=== PATIENT | female | born 1960 | race Two or more races ===

== ENCOUNTER 2017-01-04 10:02 | Outpatient (CLI) | payer OTHER ==
--- NOTE | 2017-01-08 17:32 | Mammography Report ---
DIGITAL SCREENING MAMMOGRAM: 01/04/2017 CLINICAL INDICATION: A 56-year-old nulliparous patient for screening. COMPARISON: 11/2014, 09/2011, 09/2010, 08/2009, 08/2007. TECHNIQUE: Routine CC and MLO projections as well as bilateral laterally exaggerated craniocaudal vi ews were obtained of the breasts. FINDINGS: Parenchymal tissue within both breasts is heterogeneously dense, which may lower the sensi tivity of mammography; however, there are no dominant masses, suspicious microcalcifications, or seco ndary signs of malignancy. In comparison to the previous studies, there are no significant changes. ASSESSMENT: NO MAMMOGRAPHIC EVIDENCE OF MALIGNANCY. NO SIGNIFICANT INTERVAL CHANGES. RECOMMENDATION: Screening mammography is recommended annually. BIRADS category 1 - negative. STANDARD QUALIFYING STATEMENTS 1. This examination was reviewed with the aid of Computed-Aided Detection (CAD). 2. A negative or benign imaging report should not delay biopsy if clinically suspicious findings are present. Consider surgical consultation if warranted. More than 5% of cancers are not identified b y imaging. 3. Dense breasts may obscure an underlying neoplasm. JOB #: [id number] EXT JOB #:[id number]
== END 2017-01-04 10:03 | disposition home or self-care (01) ==
LOC: DI 10:02
PROVIDERS: ATTEND Internal Medicine
DX: Z12.31 Encounter for screening mammogram for malignant neoplasm of breast (principal)
CPT/HCPCS: 77067

== ENCOUNTER 2019-01-03 15:25 | Emergency (ER) | payer OTHER ==
--- NOTE | 2019-01-03 15:39 | ED Physician Documentation ---
History of Present Illness - Stated complaint Stated Complaint: POSS STROKE - Chief complaint Chief Complaint: Neuro - History obtained from History obtained from: Patient, Family - Additonal information Additional information: Patient is a 58-year-old female with history of thyroid disturbance presenting with her who has concern for possible confusion since approximately 45 minutes prior to arrival.Patient is reportedly amnestic to today and the last several days, however, upon further probing, she is able to answer questions appropriately.However, provides most of the history. He denies any recent illness or complaints including fever, chest pain, difficulty breathing, abdominal pain, vomiting, bowel or urine changes. does report eating sexton mushrooms obtained from the [employer] with the patient earlier this morning, but otherwise denies alcohol and drug use. Patient was laying tile in the bathroom this afternoon and exposed to concrete, but no other chemicals. Patient was at her normal this morning and first noticed confusion when he questioned her regarding the bathroom tiles just prior to arrival. He otherwise does not report facial droop, paresthesias, or paralysis, slurred speech. Patient also denies the symptoms. No other improving or worsening factors noted. No anticoagulation. Review of Systems Constitutional: denies: Fever Eyes: denies: Decreased vision Cardiac: denies: Chest pain / pressure Respiratory: denies: Dyspnea GI: denies: Abdominal Pain : denies: Dysuria Neurologic: reports: Confused, Altered mental status. denies: Generalized weakness, Focal weakness, Numbness, Difficulty speaking, Near syncope, Syncope, Headache PD PAST MEDICAL HISTORY - Past Medical History Cardiovascular: None Endocrine/Autoimmune: HyPOthyroidism GI: None : None HEENT: None Psych: None Musculoskeletal: None Derm: None - Past Surgical History Past Surgical History: No - Present Medications Home Medications: Ambulatory Orders Medication Instructions Recorded Confirmed Levothyroxine [Synthroid] 25 mcg PO QDAC 07/19/15 01/03/19 Nitrofurantoin Monohyd/M-Cryst 100 mg PO BID #10 capsule 01/03/19 [Macrobid 100 mg Capsule] - Allergies Allergies/Adverse Reactions: Allergies Allergy/AdvReac Type Severity Reaction Status Date / Time No Known Drug Allergies Allergy Verified 01/03/19 15:34 PD ED PE NORMAL - Vitals Vital signs reviewed: Yes - General General: Alert and oriented X 3, No acute distress, Well developed/nourished - HEENT HEENT: Atraumatic, PERRL, EOMI, Moist mucous membranes, Pharynx benign, Dentition benign, Other (Gross visual acuity intact) - Neck Neck: Supple, no meningeal sign - Cardiac Cardiac: RRR, No murmur - Respiratory Respiratory: No respiratory distress, Clear bilaterally - Abdomen Abdomen: Normal bowel sounds, Soft, Non tender, Non distended - Derm Derm: Normal color, Warm and dry, No rash - Extremities Extremities: No deformity, No tenderness to palpate - Neuro Neuro: Alert and oriented X 3, 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1 RDW 13.0 Plt Count 222 MPV 7.6 L Neut # (Auto) 4.4 Lymph # (Auto) 1.9 [place] # (Auto) 0.5 Eos # (Auto) 0.1 Baso # (Auto) 0.1 Absolute Nucleated RBC 0.00 Nucleated RBC % 0.1 PT 11.8 INR 1.0 APTT 29.1 Sodium 140 Potassium 3.4 L Chloride 100 L Carbon Dioxide 27 Anion Gap 13.0 BUN 17 Creatinine 0.7 Estimated GFR (MDRD) 86 L Glucose 87 POC Whole Bld Glucose Calcium 9.6 Total Bilirubin 0.7 AST 23 ALT 19 Alkaline Phosphatase 58 Troponin I Total Protein 8.1 Albumin 5.1 Globulin 3.0 Albumin/Globulin Ratio 1.7 Lipase 36 TSH Urine Color Urine Clarity Urine pH Ur Specific [place] Urine Protein Urine Glucose (UA) Urine Ketones Urine Occult Blood Urine Nitrite Urine Bilirubin Urine Urobilinogen Ur Leukocyte Esterase Urine RBC Urine WBC Ur Squamous Epith Cells Urine Bacteria Ur Microscopic Review Urine Culture Comments Salicylates < 6.0 Urine Opiates Screen Ur Oxycodone Screen Urine Methadone Screen Ur Propoxyphene Screen Acetaminophen < 10 L Ur Barbiturates Screen Ur Tricyclics Screen Ur Phencyclidine Scrn Ur Amphetamine Screen U Methamphetamines Scrn U Benzodiazepines Scrn Urine Cocaine Screen U Cannabinoids Screen Ethyl Alcohol < 5.0 01/03/19 01/03/19 01/03/19 15:35 15:35 15:36 WBC RBC Hgb Hct MCV MCH MCHC RDW Plt Count MPV Neut # (Auto) Lymph # (Auto) [place] # (Auto) Eos # (Auto) Baso # (Auto) Absolute Nucleated RBC Nucleated RBC % PT INR APTT Sodium Potassium Chloride Carbon Dioxide Anion Gap BUN Creatinine Estimated GFR (MDRD) Glucose POC Whole Bld Glucose 89 Calcium Total Bilirubin AST ALT Alkaline Phosphatase Troponin I < 0.04 Total Protein Albumin Globulin Albumin/Globulin Ratio Lipase TSH 4.04 Urine Color Urine Clarity Urine pH Ur Specific [place] Urine Protein Urine Glucose (UA) Urine Ketones Urine Occult Blood Urine Nitrite Urine Bilirubin Urine Urobilinogen Ur Leukocyte Esterase Urine RBC Urine WBC Ur Squamous Epith Cells Urine Bacteria Ur Microscopic Review Urine Culture Comments Salicylates Urine Opiates Screen Ur Oxycodone Screen Urine Methadone Screen Ur Propoxyphene Screen Acetaminophen Ur Barbiturates Screen Ur Tricyclics Screen Ur Phencyclidine Scrn Ur Amphetamine Screen U Methamphetamines Scrn U Benzodiazepines Scrn Urine Cocaine Screen U Cannabinoids Screen Ethyl Alcohol 01/03/19 16:03 WBC RBC Hgb Hct MCV MCH MCHC RDW Plt Count MPV Neut # (Auto) Lymph # (Auto) [place] # (Auto) Eos # (Auto) Baso # (Auto) Absolute Nucleated RBC Nucleated RBC % PT INR APTT Sodium Potassium Chloride Carbon Dioxide Anion Gap BUN Creatinine Estimated GFR (MDRD) Glucose POC Whole Bld Glucose Calcium Total Bilirubin AST ALT Alkaline Phosphatase Troponin I Total Protein Albumin Globulin Albumin/Globulin Ratio Lipase TSH Urine Color YELLOW Urine Clarity CLEAR Urine pH 6.0 Ur Specific [place] <=1.005 Urine Protein NEGATIVE Urine Glucose (UA) NEGATIVE Urine Ketones NEGATIVE Urine Occult Blood NEGATIVE Urine Nitrite NEGATIVE Urine Bilirubin NEGATIVE Urine Urobilinogen 0.2 (NORMAL) Ur Leukocyte Esterase SMALL H Urine RBC None Seen Urine WBC 0-3 Ur Squamous Epith Cells RARE Squamous Urine Bacteria Rare Ur Microscopic Review INDICATED Urine Culture Comments INDICATED Salicylates Urine Opiates Screen NEGATIVE Ur Oxycodone Screen NEGATIVE Urine Methadone Screen NEGATIVE Ur Propoxyphene Screen NEGATIVE Acetaminophen Ur Barbiturates Screen NEGATIVE Ur Tricyclics Screen NEGATIVE Ur Phencyclidine Scrn NEGATIVE Ur Amphetamine Screen NEGATIVE U Methamphetamines Scrn NEGATIVE U Benzodiazepines Scrn NEGATIVE Urine Cocaine Screen NEGATIVE U Cannabinoids Screen NEGATIVE Ethyl Alcohol PD MEDICAL DECISION MAKING - ED course Complexity details: reviewed old records, reviewed results, re-evaluated patient, considered differential, d/w patient, d/w family, d/w recruiting consultant ED course: Given patient's generalized confusion without slurred speech, facial droop, or specific neurological deficit have concerns for amnesia, specifically global amnesia, as well as intoxication or other drug use, particularly as patient was exposed to wild mushrooms earlier today. Patient and deny trauma and do not find evidence of such on exam. Do not feel she is experiencing a traumatic brain injury/bleed at this time. No signs of meningitis or concerns for encephalitis. However, patient could be experiencing a stroke. Physical exam and symptoms do not indicate etiologies of PE, systemic illness or infection like UTI, ACS, myocardial infarction, unstable angina, but considered. Patient started on IV fluids, but did not require medications. CT head and CTA head and neck imaging were obtained. Tele-neurology also consulted and evaluated patient in ED. Screening lab work and urinalysis also obtained. EKG obtained which not find evidence of acute ischemia. Screening lab work, urinalysis, and drug testing also returned relatively unremarkable. Neurology felt that patient was likely experiencing transient global amnesia especially given her particular memory deficit. No further work-up or imaging required. MRI brain could be done, but not necessary. Patient symptoms should resolve with time. Discussed results and recommendations with patient and her , as well as strict return precautions, restrictions, expectations at home, use of antibiotics for possible UTI and need for close follow-up with her primary care physician. Departure - Departure Disposition: 01 Home, Self Care Clinical Impression: Transient global amnesia Urinary tract infection Qualifiers: Urinary tract infection type: acute cystitis Hematuria presence: without hematuria Qualified Code(s): N30.00 - Acute cystitis without hematuria Condition: Good Instructions: ED UTI Cystitis Female, ED Confusion Follow-Up: your,doctor [Other] - Within 3 Days Prescriptions: Nitrofurantoin Monohyd/M-Cryst [Macrobid 100 mg Capsule] 100 mg PO BID #10 capsule Comments: Please continue home medications as previously instructed. Please avoid alcohol, recreational drugs, or other altering substances. Recommend rest, hydration, healthy diet and follow-up with your primary care physician in the next 2 to 3 days. Also, while exhibiting symptoms of confusion, please do not drive, cook, or engage in other activities that could result in harm to yourself or others.Return to ED sooner if experience worsening symptoms or other concerns.
[2019-01-03 15:44] LABS: BASOPHILS # (AUTO) 0.1 10^3/uL (0.0-0.1); BASOPHILS % (AUTO) 0.8 %; EOSINOPHILS # (AUTO) 0.1 10^3/uL (0.0-0.7); EOSINOPHILS % (AUTO) 1.8 %; HGB - HEMOGLOBIN 15.7 g/dL (12.0-16.0); LYMPHOCYTES # (AUTO) 1.9 10^3/uL (1.5-3.5); LYMPHOCYTES % (AUTO) 27.4 %; MEAN CORPUSCULAR HEMOGLOBIN 31.4 pg (27.0-31.0); MEAN CORPUSCULAR HGB CONC 34.1 g/dL (32.0-36.0); MEAN PLATELET VOLUME 7.6 fL (7.9-10.8); MONOCYTES # (AUTO) 0.5 10^3/uL (0.0-1.0); MONOCYTES % (AUTO) 7.7 %; NEUTROPHILS # (AUTO) 4.4 10^3/uL (1.5-6.6); NEUTROPHILS % (AUTO) 62.3 %; PLT - PLATELET COUNT 222 10^3/uL (130-450); WHITE BLOOD COUNT 7.1 x10^3/uL (4.8-10.8)
[2019-01-03 15:47] LABS: PT - PROTHROMBIN TIME 11.8 secs (9.9-12.6)
[2019-01-03 15:57] LABS: PARTIAL THROMBOPLASTIN TIME 29.1 secs (24.9-33.3)
[2019-01-03 15:58] LABS: ACETAMINOPHEN < 10 ug/mL (10-30); ALBUMIN 5.1 g/dL (3.2-5.5); ALBUMIN/GLOBULIN RATIO 1.7 (1.0-2.2); ALKALINE PHOSPHATASE 58 IU/L (42-121); ALT ALANINE AMINOTRANSFERASE 19 IU/L (10-60); AST ASPARTATE AMINOTRANSFERASE 23 IU/L (10-42); BILIRUBIN,TOTAL 0.7 mg/dL (0.2-1.0); BUN - BLOOD UREA NITROGEN 17 mg/dL (6-20); CALCIUM 9.6 mg/dL (8.5-10.3); CARBON DIOXIDE - CO2 27 mmol/L (21-32); CHLORIDE 100 mmol/L (101-111); CREATININE 0.7 mg/dL (0.4-1.0); GFR - MDRD 86 (>89); GLUCOSE 87 mg/dL (70-100); LIPASE 36 U/L (22-51); SALICYLATE < 6.0 mg/dL; SODIUM 140 mmol/L (135-145); TOTAL PROTEIN 8.1 g/dL (6.7-8.2)
[2019-01-03] MEDS: SODIUM CHLORIDE 0.9% 1,000 ML IV ONE ×2 (16:08→16:11)
[2019-01-03 16:13] LABS: MUDS CUTOFF CONCENTRATIONS CUTOFF CONC BELOW:
[2019-01-03 16:16] LABS: BILIRUBIN,URINE NEGATIVE (NEGATIVE); GLUCOSE, URINE (UA) NEGATIVE (NEGATIVE); KETONES,URINE (UA) NEGATIVE (NEGATIVE); LEUKOCYTE ESTERASE, URINE SMALL (NEGATIVE); NITRITE,URINE NEGATIVE (NEGATIVE); OCCULT BLOOD,URINE NEGATIVE (NEGATIVE); PROTEIN,URINE NEGATIVE (NEGATIVE); UROBILINOGEN,URINE 0.2 (NORMAL) E.U./dL (NORMAL)
--- NOTE | 2019-01-03 16:22 | CT Report ---
Reason: Concern for stroke, amnestic to the last hours Procedure Date: 01/03/2019 Accession Number: [id number] / [id number] Procedure: CT - HEAD WO CPT Code: FULL RESULT: EXAM: CT HEAD WITHOUT CONTRAST. COMPARISON: HEAD ANGIO 01/03/2019 3:49 PM. NECK ANGIO 01/03/2019 3:49 PM. CLINICAL HISTORY: Concern for stroke, amnestic to the last hours. TECHNIQUE: Axial CT images were obtained from the foramen magnum to the vertex without contrast In accordance with CT protocol optimization, one or more of the following dose reduction techniques were utilized for this exam: automated exposure control, adjustment of mA and/or KV based on patient size, or use of iterative reconstructive technique. FINDINGS: No intracranial hemorrhage. No masses. No dense vessels. Ventricular size is normal. Question of a subtle dorsal predominant fairly symmetric low attenuation, versus scanner artifact. Brain MRI suggested. Mastoids are clear. Middle ears are clear. No lytic or blastic bone lesions are seen. IMPRESSION: No intracranial hemorrhage, masses, or other discrete acute intracranial process identified. Subtle dorsal fairly symmetric apparent low attenuation is nonspecific, could reflect artifact, other etiologies are not excluded, MRI would likely be helpful. Preliminary, initial, and incomplete interpretation of the CT angio images show no obvious large vessel occlusion, definitive evaluation is deferred to complete interpretation of the entire study to follow. The above critical test findings were discussed with ED Physician by Dr. Panda Delgado at 04:19 PM on 01/03/2019.
[2019-01-03 16:24] LABS: CLARITY,URINE CLEAR (CLEAR)
--- NOTE | 2019-01-03 16:31 | CT Report ---
Reason: L sided facial droop Procedure Date: 01/03/2019 Accession Number: [id number] / [id number] Procedure: CT - ANGIO HEAD W CPT Code: FULL RESULT: EXAM: CTA HEAD. COMPARISON: CTA neck, 01/03/2019. CLINICAL HISTORY: Left-sided facial droop. TECHNIQUE: Axial CT images were obtained through the head during arterial phase after intravenous Iodinated Contrast OPTI-320, 80 mL. Pre-and postcontrast head CT is performed. 3 dimensional MIP reconstructions are created from axial data. Stenosis is measured by NASCET type criteria. In accordance with CT protocol optimization, one or more of the following dose reduction techniques were utilized for this exam: automated exposure control, adjustment of mA and/or KV based on patient size, or use of iterative reconstructive technique. FINDINGS: Postcontrast head CT: No abnormal parenchymal enhancement. No masses. No lytic or blastic bone lesions are seen. Head CTA: Right internal carotid artery: No hemodynamically significant stenosis or aneurysm is identified through the terminus. There is prominent right P-comm. Right M1, M2 and visualized distal segments are unremarkable. Right A1, A2 and visualized distal segments are unremarkable. Left internal carotid artery: No hemodynamically significant stenosis or aneurysm is identified through the terminus. There is a prominent left P-comm. Left A1, A2 and visualized distal segments are unremarkable. Left M1, M2 and visualized distal segments are unremarkable. Posterior circulation: Intracranial vertebral arteries are left-sided dominant. Left flank origin is well visualized. There is flow in the distal left PICA. There is a right-sided PICA/AICA, flow was demonstrated distally. Basilar artery is a small, concordant with bilateral prominent P-comm's. P2 and visualized distal segments are unremarkable. No evident abnormality of the dural venous sinuses or deep venous structures is seen on this arterial phase study, the venous structures are incompletely evaluated. IMPRESSION: Postcontrast head CT: No abnormal parenchymal enhancement. No masses. Head CTA: Normal variant intracranial arterial circulation.
[2019-01-03 16:34] LABS: AMPHETAMINE SCREEN,URINE NEGATIVE (NEGATIVE); BACTERIA,URINE Rare /HPF (None Seen); BENZODIAZEPINES SCREEN, URINE NEGATIVE (NEGATIVE); COCAINE SCREEN URINE NEGATIVE (NEGATIVE); METHADONE SCREEN, URINE NEGATIVE (NEGATIVE); METHAMPHETAMINES SCREEN, URINE NEGATIVE (NEGATIVE); OPIATE SCREEN, URINE NEGATIVE (NEGATIVE); OXYCODONE SCREEN, URINE NEGATIVE (NEGATIVE); PROPOXYPHENE SCREEN, URINE NEGATIVE (NEGATIVE); RBC,URINE None Seen /HPF (0-5); SQUAMOUS EPITHELIAL CELL,UR RARE Squamous (<= Few); TRICYCLIC ANTIDEPRESSANT,URINE NEGATIVE (NEGATIVE)
[2019-01-03] MEDS ORDERED: IOVERSOL 320 100 ML VIAL IVP ONE (16:41)
[2019-01-03 16:51] VITALS: BP 148/86
--- NOTE | 2019-01-03 17:32 | CT Report ---
Reason: L sided facial droop, L neck pain Procedure Date: 01/03/2019 Accession Number: [id number] / [id number] Procedure: CT - ANGIO NECK W/WO CPT Code: FULL RESULT: EXAM: CTA NECK COMPARISON: HEAD ANGIO 01/03/2019 3:49 PM. CLINICAL HISTORY: Left sided facial droop, left neck pain. TECHNIQUE: Axial CT images were obtained through the neck during arterial phase after intravenous Optiray- 320 80 mL iodinated contrast. 3 dimensional MIP reconstructions are created from axial data. Stenosis is measured by NASCET type criteria. In accordance with CT protocol optimization, one or more of the following dose reduction techniques were utilized for this exam: automated exposure control, adjustment of mA and/or KV based on patient size, or use of iterative reconstructive technique. FINDINGS: The visualized right upper chest shows no pulmonary nodules or masses. No pneumothorax. Visualized left upper chest shows no pulmonary nodules or masses. No pneumothorax. Reversal of the normal cervical lordosis is noted, no high-grade bony canal stenosis. No cervical adenopathy or masses. There is facet arthropathy, most notable at the right C3-C4. Larynx is normal. Epiglottis is normal. Vallecula is normal. Base of tongue is unremarkable, allowing for motion. Temporomandibular joints are normally located. Zygomatic arches are intact. Arterial structures: Right carotid artery: Right common carotid artery originates normally from the brachiocephalic, relatively unremarkable to the bifurcation, allowing for motion. No definite abnormality to the skull base, again allowing for motion artifact. Left carotid artery: Left common carotid artery originates normally from the aortic arch, allowing for motion, shows no hemodynamically significant stenosis or dissection to the skull base. Dissection in particular cannot be excluded at the level of the bifurcation secondary to motion. Posterior circulation: Left vertebral artery is dominant, originates normally from the left subclavian artery, shows no evident hemodynamically significant stenosis or dissection of the dural ring. Right vertebral artery is nondominant, shows no evident hemodynamically significant stenosis or dissection to the dural ring. IMPRESSION: Images are degraded by motion. Dissection cannot be excluded, particularly at the level of the carotid bifurcations. Visualized extracranial arterial circulation shows no evident abnormality.
== END 2019-01-03 16:57 | disposition home or self-care (01) ==
LOC: ED 15:25
DX: G45.4 Transient global amnesia (principal); N30.00 Acute cystitis without hematuria; E03.9 Hypothyroidism, unspecified
CPT/HCPCS: 36415; 70450; 70496; 70498; 80053; 80306; 80307; 80320; 80329; 81001; 81003; 83690; 84443; 84484; 85025; 85610; 85730; 87077; 87086; 93005; 99284

== ENCOUNTER 2019-03-04 15:04 | Outpatient (CLI) | payer OTHER ==
--- NOTE | 2019-03-05 09:13 | Mammography Report ---
Reason: ENCOUNTER FOR SCREENING MAMMOGRAM FOR MALIGNANT NE Procedure Date: 03/04/2019 Accession Number: [id number] / [id number] Procedure: [facility] - Screening Mammo w/Daryl CPT Code: FULL RESULT: EXAM: Screening Mammo w/Daryl DATE: 03/04/2019 3:48 PM CLINICAL HISTORY: Screening encounter. History of nulliparity. TECHNIQUE: (B) - Bilateral CC, laterally exaggerated CC, MLO views were obtained. COMPARISON: 01/04/2017 through 09/14/2010. PARENCHYMAL PATTERN: (A) - The breast(s) demonstrate(s) scattered fibroglandular densities. FINDINGS: There are no suspicious masses, calcifications, or areas of distortion. IMPRESSION: Negative examination. BI-RADS category 1. RECOMMENDATION: (ANNUAL) - Recommend routine annual screening mammography. BI-RADS CATEGORY: (1) - Negative. STANDARD QUALIFYING STATEMENTS: 1. This examination was not reviewed with the aid of Computer-Aided Detection (CAD). 2. A negative or benign imaging report should not preclude biopsy if clinically suspicious findings are present. 3. Dense breasts may obscure an underlying neoplasm. 4. This examination was reviewed with the aid of 3D breast imaging (tomosynthesis).
== END 2019-03-04 15:05 | disposition home or self-care (01) ==
LOC: DI 15:04
PROVIDERS: ATTEND Internal Medicine
DX: Z12.31 Encounter for screening mammogram for malignant neoplasm of breast (principal)
CPT/HCPCS: 77063; 77067

== ENCOUNTER 2021-06-26 08:45 | Outpatient (CLI) | payer OTHER ==
--- NOTE | 2021-07-04 14:08 | Mammography Report ---
BILATERAL DIGITAL SCREENING MAMMOGRAM 3D/2D WITH EXAGGERATED CC: 06/26/2021 CLINICAL: Routine screening. Comparison is made to exams dated: 03/04/2019 mammogram, 01/04/2017 mammogram, and 12/09/2014 mammogram - [facility]. The tissue of both breasts is predominantly fatty. No significant masses, calcifications, or other findings are seen in either breast. IMPRESSION: NEGATIVE There is no mammographic evidence of malignancy. A 1 year screening mammogram is recommended. This exam was interpreted at Station ID: [id number]. NOTE: For mammograms, a report in lay terms will be sent to the patient. Approximately 15% of breast malignancies will not be visualized mammographically. In the management of a palpable breast mass, a negative mammogram must not discourage biopsy of a clinically suspicious lesion. Electronically Signed By: Roosevelt Lopez acr/penrad:06/26/2021 14:18:13 ACR BI-RADS Category 1: Negative 3341F PARENCHYMAL PATTERN: (F) - The breast(s) demonstrate(s) diffuse fatty replacement. BI-RADS CATEGORY: (1) - 1 RECOMMENDATION: (ANNUAL) - Recommend routine annual screening mammography. [id number] 1 year screening LATERALITY: (B)
== END 2021-06-26 08:46 | disposition home or self-care (01) ==
LOC: DI.S 08:45
PROVIDERS: ATTEND Internal Medicine
DX: Z12.31 Encounter for screening mammogram for malignant neoplasm of breast (principal)

== ENCOUNTER 2023-04-17 09:27 | Outpatient (CLI) | payer OTHER ==
--- NOTE | 2023-04-18 12:05 | Mammography Report ---
BILATERAL DIGITAL SCREENING MAMMOGRAM 3D/2D WITH EXAGGERATED CC: 04/17/2023 CLINICAL: Routine screening. Family history of breast cancer. Comparison is made to exams dated: 06/26/2021 mammogram, 03/04/2019 mammogram, 01/04/2017 mammogram, a nd 12/09/2014 mammogram - [facility]. Both breasts are heterogeneously dense, which may obscure small masses (category c / 51-75% glandular tissue). No significant masses, calcifications, or other findings are seen in either breast. There has been no significant interval change. IMPRESSION: NEGATIVE There is no mammographic evidence of malignancy. A 1 year screening mammogram is recommended. Based on the Tyrer Cuzick model (a risk assessment model) the patients lifetime risk is 12.6% and he r 10 year risk is 5.6%. According to the ACR, ACS, and NCCN guidelines, an annual breast MRI exam spencer ng with mammogram is recommended if the patients lifetime risk is 20% or greater. This exam was interpreted at Station ID: [id number]. NOTE: For mammograms, a report in lay terms will be sent to the patient. Approximately 15% of breast malignancies will not be visualized mammographically. In the management of a palpable breast mass, a negative mammogram must not discourage biopsy of a clinically suspicious lesion. Electronically Signed By: Ivanna jean/[place]:04/17/2023 20:26:10 letter sent: No_Letter ACR BI-RADS Category 1: Negative 3341F PARENCHYMAL PATTERN: (D) - The breast(s) demonstrate(s) heterogeneously dense fibroglandular ele emmanuel. BI-RADS CATEGORY: (1) - 1 Mammogram [id number] 1 year screening LATERALITY: (B)
== END 2023-04-17 09:28 | disposition home or self-care (01) ==
LOC: DI.S 09:27
PROVIDERS: ATTEND Internal Medicine
DX: Z12.31 Encounter for screening mammogram for malignant neoplasm of breast (principal); Z80.3 Family history of malignant neoplasm of breast